=== PATIENT | female | born 1965 | race Two or more races ===

== ENCOUNTER 2024-03-12 07:14 | Outpatient (CLI) | payer OTHER | END 2024-03-12 07:30 | disposition home or self-care (01) | LOC: TOM 07:14 | PROVIDERS: ATTEND Internal Medicine Gastroenterology | DX: K56.600 Partial intestinal obstruction, unspecified as to cause (principal) ==

== ENCOUNTER 2024-03-19 07:09 | Outpatient (CLI) | payer OTHER | END 2024-03-19 07:10 | disposition home or self-care (01) | LOC: NUCLEAR 07:09 | PROVIDERS: ATTEND Internal Medicine | DX: I20.9 Angina pectoris, unspecified (principal) ==